=== PATIENT | female | born 2000 | race American Indian/Alaskan Native ===

== ENCOUNTER 2022-01-16 13:05 | Emergency (ER) | payer SELFPAY ==
[2022-01-16 13:22] VITALS: BP 131/79
--- NOTE | 2022-01-16 14:15 | XRay Report ---
LEFT SHOULDER 3 VIEW(S) INDICATION / CLINICAL INFORMATION: pain s/p fall. COMPARISON: None available. FINDINGS: BONES / JOINT(S): No acute fracture or subluxation. No significant arthritis. SOFT TISSUES: No significant abnormality. ADDITIONAL FINDINGS: None. IMPRESSION: 1. No acute findings. Signer Name: Joe Cunningham MD Signed: 01/16/2022 2:11 PM Workstation Name: [id number]
--- NOTE | 2022-01-16 14:16 | XRay Report ---
RIGHT KNEE 3 VIEW(S) INDICATION / CLINICAL INFORMATION: pain s/p fall COMPARISON: None available. FINDINGS: BONES / JOINT(S): No acute fracture or subluxation. No significant arthritis. SOFT TISSUES: No significant abnormality. ADDITIONAL FINDINGS: None. IMPRESSION: 1. No acute findings. Signer Name: Joe Cunningham MD Signed: 01/16/2022 2:12 PM Workstation Name: [id number]
--- NOTE | 2022-01-16 14:17 | XRay Report ---
. LEFT HUMERUS 2 VIEW(S) INDICATION / CLINICAL INFORMATION: pain s/p fall COMPARISON: None available. FINDINGS: BONES / JOINT(S): No acute fracture or subluxation. No significant arthritis. SOFT TISSUES: No significant abnormality. ADDITIONAL FINDINGS: None. IMPRESSION: 1. No acute findings. Signer Name: Joe Cunningham MD Signed: 01/16/2022 2:12 PM Workstation Name: [id number]
--- NOTE | 2022-01-16 14:20 | Cat Scan Report ---
CT HEAD WITHOUT CONTRAST INDICATION / CLINICAL INFORMATION: Headache after fall. TECHNIQUE: All CT scans at this location are performed using CT dose reduction for ALARA by means of automated exposure control. COMPARISON: None available. FINDINGS: BRAIN PARENCHYMA: No acute intracranial hemorrhage. No evidence of recent infarct. No mass effect or midline shift. VENTRICULAR SYSTEM/EXTRA-AXIAL SPACES: Ventricles are normal for age. No extra-axial fluid collection . ORBITS: Normal as visualized. SKELETAL SYSTEM/SOFT TISSUES: Normal bones and soft tissues. PARANASAL SINUSES/MASTOID AIR CELLS: No significant abnormality. ADDITIONAL FINDINGS: None. IMPRESSION: 1. No acute intracranial abnormality. Signer Name: Reinier Bergman MD Signed: 01/16/2022 2:15 PM Workstation Name: [id number]
--- NOTE | 2022-01-16 14:21 | Cat Scan Report ---
CT cervical spine wo con INDICATION / CLINICAL INFORMATION: 21 years Female; pain s/p fall. TECHNIQUE: Axial CT images of the cervical spine were obtained. Sagittal and coronal reformatted images were pr oduced. All CT scans at this location are performed using CT dose reduction for ALARA by means of aut omated exposure control. COMPARISON: None available. FINDINGS: POST-SURGICAL CHANGES: None. ALIGNMENT: Straightening of the cervical spine noted, which may be related to patient positioning. VERTEBRAE: No signs of fracture. Vertebral bodies are grossly normal in height throughout. No signif icant facet joint disease or osseous foraminal narrowing appreciated. INTRAVERTEBRAL DISCS: Disc spaces are fairly well-maintained throughout without significant canal andreia nosis. Minimal disc disease seen at C4-5. PARASPINAL SOFT TISSUES: No significant abnormality. ADDITIONAL FINDINGS: None. IMPRESSION: 1. No signs of acute bony trauma to the cervical spine. Signer Name: Tod Kumar MD, III Signed: 01/16/2022 2:17 PM Workstation Name: [email or web address]
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
== END 2022-01-16 15:02 | disposition home or self-care (01) ==
LOC: ED 13:05
DX: S00.03XA Contusion of scalp, initial encounter (principal); M54.2 Cervicalgia; S89.91XA Unspecified injury of right lower leg, initial encounter; S49.92XA Unspecified injury of left shoulder and upper arm, initial encounter; Z91.013 Allergy to seafood; Z79.899 Other long term (current) drug therapy; W18.39XA Other fall on same level, initial encounter; Y93.89 Activity, other specified; Y92.89 Other specified places as the place of occurrence of the external cause; Y99.8 Other external cause status
CPT/HCPCS: 70450; 72125; 99284

== ENCOUNTER 2022-03-24 20:10 | Emergency (ER) | payer MEDICAID ==
[2022-03-24 21:10] VITALS: BP 126/74
[2022-03-24 21:27] LABS: Bilirubin,Urine Negative (Negative); Blood,Urine Large (Negative); Color,Urine Brown (Yellow)
[2022-03-24 21:28] LABS: Protein,Urine 300 mg/dL mg/dL (Negative); Urobilinogen,Urine 0.2 mg/dL (<2.0)
[2022-03-24 21:30] LABS: Mucus,Urine 3+ /HPF
[2022-03-24 21:31] LABS: HCG Qualitative,Urine Negative (Negative); RBC,Urine > 182.0 /HPF (0.0-6.0)
--- NOTE | 2022-03-25 04:24 | Emergency Department Report ---
ED Female HPI - General Chief complaint: Vaginal Bleeding Stated complaint: AB PAINS Time Seen by Provider: 03/25/22 02:48 Source: patient Mode of arrival: Ambulatory Limitations: No Limitations - History of Present Illness Initial comments: Is a 21-year-old female who presents for bilateral lower abdominal pain with vaginal bleeding x2 days. Last menstrual cycle 02/16/2022. Patient thinks she may be . Is been no fevers no chills pos nausea or vomiting. Patient denies vaginal discharge. Denies possibility for STI. Patient rates current symptoms at 2/10. MD Complaint: vaginal bleeding - Related Data Previous Rx's Medication Instructions Recorded Last Taken Type Naproxen 500 mg PO Q12H PRN #12 tab 01/16/22 Unknown Rx cephALEXin [Keflex] 500 mg PO BID 7 Days #14 cap 03/25/22 Unknown Rx Allergies Allergy/AdvReac Type Severity Reaction Status Date / Time shellfish derived Allergy Anaphylaxis Verified 01/16/22 13:23 ED Review of Systems ROS: Stated complaint: AB PAINS Other details as noted in HPI Constitutional: denies: chills, fever Eyes: denies: eye pain, eye discharge, vision change ENT: denies: ear pain, throat pain Respiratory: denies: cough, shortness of breath, wheezing Cardiovascular: denies: chest pain, palpitations Endocrine: no symptoms reported Gastrointestinal: abdominal pain, nausea. denies: vomiting, diarrhea, constipation Genitourinary: urgency, dysuria, frequency. denies: hematuria, discharge, abnormal menses, dyspareunia Musculoskeletal: denies: back pain, joint swelling, arthralgia Skin: as per HPI Neurological: denies: headache, weakness, paresthesias Psychiatric: denies: anxiety, depression Hematological/Lymphatic: denies: easy bleeding, easy bruising ED Past Medical Hx - Surgical History Additional Surgical History: right eye - Social History Smoking Status: Never Smoker Substance Use Type: Marijuana - Medications Home Medications: Home Medications Medication Instructions Recorded Confirmed Last Taken Type Naproxen 500 mg PO Q12H PRN #12 tab 01/16/22 Unknown Rx cephALEXin [Keflex] 500 mg PO BID 7 Days #14 cap 03/25/22 Unknown Rx ED Physical Exam - General Limitations: No Limitations General appearance: alert, in no apparent distress - Head Head exam: Present: normocephalic, normal inspection - Eye Eye exam: Present: EOMI Pupils: Present: normal accommodation - ENT ENT exam: Present: mucous membranes moist - Neck Neck exam: Present: normal inspection, full ROM. Absent: tenderness, lymphadenopathy - Respiratory Respiratory exam: Present: normal lung sounds bilaterally. Absent: respiratory distress, wheezes, stridor, chest wall tenderness - Cardiovascular Cardiovascular Exam: Present: regular rate, normal rhythm, normal heart sounds. Absent: systolic murmur, diastolic murmur, rubs, gallop - GI/Abdominal GI/Abdominal exam: Present: soft, normal bowel sounds. Absent: distended, tenderness, guarding, rebound, rigid, bruit, hernia - Rectal Rectal exam: Present: deferred, normal inspection - External exam: Present: other (Deferred per patient) - Extremities Exam Extremities exam: Present: normal inspection, full ROM, normal capillary refill. Absent: pedal edema - Back Exam Back exam: Present: normal inspection, paraspinal tenderness. Absent: CVA tenderness (R), CVA tenderness (L) - Neurological Exam Neurological exam: Present: alert, oriented X3, CN II-XII intact, normal gait - Expanded Neurological Exam Expanded Patient oriented to: Present: person, place, time Speech: Present: fluid speech Motor strength exam: RUE: 5, LUE: 5, RLE: 5, LLE: 5 Best Eye Response ([place]): (4) open spontaneously Best Motor Response ([place]): (6) obeys commands Best Verbal Response ([place]): (5) oriented [place] Total: 15 - Psychiatric Psychiatric exam: Present: normal affect, normal mood - Skin Skin exam: Present: warm, dry, intact, normal color. Absent: rash ED Course Vital Signs 03/24/22 21:00 Temperature 98.7 F Pulse Rate 77 Respiratory 18 Rate Blood Pressure 126/74 O2 Sat by Pulse 100 Oximetry ED Medical Decision Making - Lab Data Labs 03/24/22 Unknown Urine Color Brown Urine Turbidity Slightly cloudy Urine pH 6.0 Ur Specific [place] 1.025 Urine Protein 300 mg/dl Urine Glucose (UA) Negative Urine Ketones Negative Urine Blood Large A Urine Nitrite Negative Urine Bilirubin Negative Urine Urobilinogen 0.2 Ur Leukocyte Esterase Small Urine WBC (Auto) 14.0 H Urine RBC (Auto) > 182.0 U Epithel Cells (Auto) 22.0 H Urine Mucus 3+ Urine Yeast ([place]) 2+ Urine HCG, Qual Negative - Medical Decision Making UA noted as above positive for leukocytes bacteria, some epithelials, patient does endorse urinary frequency plan treat for urinary frequency, discharged to self at this time. Patient verbalized agreement and understanding with discharge plan. Patient currently alert oriented x3 tolerating p.o. intake without nausea or vomiting. Critical care attestation.: If time is entered above; I have spent that time in minutes in the direct care of this critically ill patient, excluding procedure time. ED Disposition Clinical Impression: Urinary frequency Disposition: 01 HOME / SELF CARE / HOMELESS Is pt being admited?: No Does the pt Need Aspirin: No Condition: Stable Additional Instructions: Take medicines as prescribed for urinary frequency, hydrate as directed, follow- up with your primary care doctor in 2 to 3 days. Return to the emergency department for symptoms worsen. Prescriptions: cephALEXin [Keflex] 500 mg PO BID 7 Days #14 cap Referrals: NAOMI HSU MD [Referring] - 3-5 Days Forms: Work/School Release Form(ED) Time of Disposition: 04:30
== END 2022-03-25 04:34 | disposition home or self-care (01) ==
LOC: ED 20:10
DX: R35.0 Frequency of micturition (principal)
CPT/HCPCS: 81001; 81025; 87086; 99283